=== PATIENT | male | born 1980 | race Caucasian/White ===

== ENCOUNTER 2024-06-06 14:45 | Emergency (ER) | payer BC, SELFPAY ==
--- NOTE | ~2024-06-06 | XR_ITS ---
EXAMINATION: XR chest 2V Exam Date/Time: 06/06/2024 15:00 CDT HISTORY: cough, sob/wheeze, fever x3 days Comparison: 04/23/2015. RESULT: Lines, tubes, and devices: None. Lungs and pleura: Clear. Cardiomediastinal silhouette: Stable. Other: No acute osseous or upper abdominal finding. IMPRESSION: No acute cardiopulmonary process. Reviewed, dictated and finalized at location K.
--- OUTSIDE RECORDS SUMMARY | 2024-06-06 14:48 | XMS_ITS | Clinical Summary ---
Author Organization [facility] Care Team Providers Care Tile Trimmer Name Role Phone Unavailable Primary Care Provider Unavailabl e Social History Tobacco Use Types Packs/Day Years Used Date Smoking Tobacco: Never Assessed Sex and Gender Information Value Date Recorded Sex Assigned at Not on file Legal Sex Male 11:50 PM CDT Gender Identity Not on file Sexual Orientation Not on file Plan of Treatment Health Maintenance Due Date Last Done Comments Hepatitis C Virus (HCV) Screening 1982 TdaP Immunization 1982 Hepatitis B Immunization (1 of 3 - 19+ 3-dose series) 2001 Influenza Immunization (#1) 2023 SARS-COV-2 Immunization ( season) 2023 Respiratory Syncytial Virus (RSV) Immunization (Adult) (1 - 1-dose 75+ series) 2057 Meningococcal Immunization (ACWY) Aged Out No longer eligible based on patient's age to complete this topic Pneumococcal Immunization Combined Aged Out No longer eligible based on patient's age to complete this topic Rotavirus Immunization Aged Out No lo nger eligible based on patient's age to complete this topic
--- OUTSIDE RECORDS SUMMARY | 2024-06-06 14:48 | XMS_ITS | Encounter Summary ---
Author Organization [facility] Address [address] [place] [address] Phone Care Team Providers Care Manager Technical Name Role Phone Justo Almaguer MD Primary Care Provider [phone] Encounter Details Date Type Department Care Team (Late st Contact Info) Description 05/17/2017 Orders Only [facility] ProviderPhu MD [address] [place] [id number] Social History Tobacco Use Types Packs/Day Years Used Date Smoking Tobacco: Heavy Smoker Smokeless Tobacco: Never Comments:Smoking History Pac ks/day: 1 Packs Alcohol Use Standard Drinks/Week Comments Yes 0 (1 standard drink = 0.6 oz pur e alcohol) Sex and Gender Information Value Date Recorded Sex Assigned at Not on file Legal Sex Male 10:55 AM MANAGER CLIENT SERVICE Gender Identity Male 05/15/2020 12:37 PM CDT Sexual Orientation Straight 05/15/2020 12 :37 PM CDT documented as of this encounter Plan of Treatment Not on file documented as of this encounter Procedures Procedure Name Priority Date/Time Associated Diagnosis Comments DISCHARGE LABORATORY CUMULATIVE REPORT 05/17/2017 12:00 AM CDT documented in this encounter Results * DISCHARGE LABORATORY CUMULATIVE REPORT (05/17/2017 12:00 AM CDT) Narrative 05/17/2017 12:00 AM CDT Ordered by an unspecified provider. Historical Provider LAB BLOOD ORDERABLES Shaniqua l Result documented in this encounter Visit Diagnoses Not on filedocumented in this encounter Care Teams Manager Technical Relationship Specialty Start Date End Date Justo Almaguer MD [address] [place] [address] PCP - General Family Medicine 01/24/17 documented as of this encounter
--- OUTSIDE RECORDS SUMMARY | 2024-06-06 14:48 | XMS_ITS | Clinical Summary ---
Author Organization [facility] [address] [place] [address] Address [address] [place] [address] Care Team Providers Care Conductor Freight Name Role Phone Justo Almaguer MD Primary Care Provider [phone] Allergies Active Allergy Reactions Criticality Noted Date Comments Penicillin G Penicillins Hives Reaction: Hives, Watermelon Anaphylaxis High 03/19/2017 Face and tongue swelled up. Medications ibuprofen (ADVIL,MOTRIN) 200 mg tab/cap Take 3 tablet/capsule (600 mg total) by mouth every 6 (six) hours as needed for pain Active albuterol HFA (Ventolin HFA) 90 mcg/actuation inhaler Inhale 2 puffs every 4 (four) hours as needed for wheezing or shortness of breath 8 g 5 Active multivit with minerals/lutein (MULTIVITAMIN 50 PLUS ORAL) Active fnajexna-royp-n hkrp-hyvx-hxign 100 mg-150 mg- 50 mg-150 mg capsule Active Active Problems Problem Noted Date Diagnosed Date Physical exam, annual 06/10/2023 Assessment & Plan (06/10/2023 4:11 PM CDT): Preventive exam; reviewed recommended preventive screenings and vaccinations. Encourage annual flu vaccine. Wear sunscreen/protective clothing when outdoors. Impaired fasting glucose 06/10/2023 Assessment & Plan (06/10/2023 4:12 PM CDT): A1c = 5.6% today in office. Encouraged patient to closely monitor diet and decrease carbs/simple sugars. Will continue to monitor. Patient reports significant family history of diabetes. Asymptomatic microscopic hematuria 01/24/2017 Gastroesophageal reflux disease with esophagitis 07/03/2013 Overview (05/22/2016): REFLUX ESOPHAGITIS Assessment & Plan (03/19/2017 9:01 AM STRING CUTTER): Controlled as long as he is using nexium but in occasions also has to use tums because reflux and sore throat Will proceed with egd (assess for esophagitis, mackey's, etc) Tobacco dependence syndrome 07/03/2013 Overview (05/23/2016): Tobacco dependence Assessment & Plan (06/10/2023 4:07 PM CDT): Smoking 1/2 ppd. Reviewed NRT option. Assessment & Plan (03/19/2017 9:02 AM STRING CUTTER): Recommend smoking cessation Asthma 06/04/2012 Overview (05/23/2016): Asthma Assessment & Plan (06/10/2023 4:11 PM CDT): Using albuterol 2-3 times per week. Denies recent cough or URI. Encouraged smoking cessation. Immunizations Immunization Administration Dates Next Due Influenza, Quadrivalent, Spl it, Preservative Free, Intramuscular 12/22/2017,01/16/2014 Influenza, Trivalent, IM (MDV) 11/29/2014,2013 Influenza, Trivalent, Preser vative Free, Intramuscular 12/09/2011 Influenza, Unspecified 06/10/2023(Deferr ed: Patient Refused),11/17/2022(Deferred: Patient Refused),11/17/2021(Deferred: Patient Refused),02/17/2021(Deferred: Patient Refused),05/15/2020(Deferred: Patient Refused),02/18/2020(Deferred: Patient Refused),02/17/2019(Deferred: Patient Refused),11/17/2017,04/25/2017(Deferre d: Patient Refused) TD Preservative Free 09/03/2006 Td, adsorbed 01/11/2008 Tdap 06/10/2023 Surgical History Surgery Date Site/Laterality Comments OTHER SURGICAL HISTORY right thumb laceration/tendon repair OTHER SURGICAL HISTORY blood in urine: uroscopy Medical History Medical History Date Comments Asthma Asthma Hx Other Medical 2012 blood in urine; Comments: JORY 08/08/2014 - GERD (gastroesophageal reflux disease) Family History Medical History Relation Name Comments Other Father unknown; Alzheimer's disease Mother COPD Mother COPD; Diabetes Mother Diabetes mellit us; Diabetes type II Mother Diabetes -T ype 2; Diabetes type II Sister Diabetes -T ype 2; Relation Name Status Comments Father Other Mother Sister Alive Social History Tobacco Use Types Packs/Day Years Used Date Smoking Tobacco: Heavy Smoker Smokeless Tobacco: Never Tobacco Cessation:Ready to Q uit: Not Asked; Counseling Given: Not Answered Comments:Smoking History Packs/day: 1 Packs Alcohol Use Standard Drinks/Week Comments Yes 0 (1 standard drink = 0.6 oz pur e alcohol) PHQ-2 Answer Date Recorded PHQ-2 Total Score (If total score is 3 or more points, staff should administer the PHQ-9) 0 06/10/2023 Sex and Gender Information Value Date Recorded Sex Assigned at Not on file Legal Sex Male 10:55 AM STRING CUTTER Gender Identity Male 05/15/2020 12:37 PM CDT Sexual Orientation Straight 05/15/2020 12 :37 PM CDT Obstetrics History Last Filed Vital Signs Vital Sign Reading Time Taken Comments Blood Pressure 128/86 06/10/2023 3:42 PM CDT Pulse 92 06/10/2023 3:42 PM CDT Temperature 37.4 C (99.3 F) 06/10/2023 3:42 PM CDT Respiratory Rate 16 06/10/2023 3:42 PM CDT Oxygen Saturation 95% 06/10/2023 3:42 PM CDT Inhaled Oxygen Concentration - - Weight 84.6 kg (186 lb 9.6 oz) 06/10/2023 3:42 P M CDT Height 180.3 cm (5' 10.98 ) 06/10/2023 3:42 PM C DT Body Mass Index 26.04 06/10/2023 3:42 PM CDT Plan of Treatment Health Maintenance Due Date Last Done Comments Hepatitis C Screening 1982 Varicella Vaccines (1 of 2 - 13+ 2-dose series) 05/02/1995 Hepatitis B Screening 2000 Pneumococcal vaccine <65 (1 of 2 - PCV) 2001 Depression Screening 06/09/2024 06/10/2023, 06/22/2021, 05/15/2020, Additional history exists Regular Well Visit/Exam 18-64 06/09/2024 06/10/2023, 06/22/2021, 05/15/2020, Additional history exists Influenza Vaccine (Season Ended) 2024 12/22/2017, 11/17/2017, 11/29/2014, Additional history exists DTaP/Tdap/Td Vaccine (2 - Td or Tdap) 06/09/2033 06/10/2023, 01/11/2008, 09/03/2006 HPV Vaccines Aged Out No longer eligi ble based on patient's age to complete this topic Insurance [facility] CHOICE PLUS [facility] [employer] ID [facility] Advance Directives For more information, please contact: [phone] * Full Code (Latest Code Status on File) Date Activated Date Inactivated Comments 05/12/2017 7:20 AM 05/12/2017 10:56 AM Care Teams Conductor Freight Relationship Specialty Start Date End Date Justo Almaguer MD [address] [place] [address] PCP - General Family Medicine 01/24/17
--- OUTSIDE RECORDS SUMMARY | 2024-06-06 14:48 | XMS_ITS | Referral Summary ---
Author Organization [facility] [address] [place] [address] Address [address] [place] [address] Care Team Providers Care Program Project Manager Name Role Phone Justo Almaguer MD Primary Care Provider [phone] Allergies Active Allergy Reactions Criticality Noted Date [...] with minerals/lutein (MULTIVITAMIN 50 PLUS ORAL) Active ldphspqa-hfsq-x xrdy-hkfp-quiui 100 mg-150 mg- 50 mg-150 mg capsule [...] ESOPHAGITIS Assessment & Plan (03/19/2017 9:01 AM IMMIGRATION LAWYER): Controlled as long as he is using nexium but in occasions also has to use tums because reflux and sore throat Will proceed with egd (assess for esophagitis, mackey's, etc) Tobacco dependence syndrome 07/03/2013 Overview (05/23/2016): Tobacco dependence Assessment & Plan (06/10/2023 4:07 PM CDT): Smoking 1/2 ppd. Reviewed NRT option. Assessment & Plan (03/19/2017 9:02 AM IMMIGRATION LAWYER): Recommend smoking cessation Asthma 06/04/2012 Overview (05/23/2016): [...] Free 09/03/2006 Td, adsorbed 01/11/2008 Tdap 06/10/2023 Social History Tobacco Use Types Packs/Day Years [...] on file Legal Sex Male 10:55 AM IMMIGRATION LAWYER Gender Identity Male 05/15/2020 12:37 PM CDT Sexual Orientation Straight 05/15/2020 12 :37 PM CDT Last Filed Vital Signs Vital Sign Reading [...] 06/10/2023 3:42 PM CDT Plan of Treatment Not on file Insurance [facility] CHOICE PLUS [facility] H[facility]/PPO Address: [address] [address] [place] [address] [facility] Address: [address] [address] [place] [address] [facility]/PPO Address: [address] [address] [place] [address] [facility] Advance Directives For more information, please contact: [phone] * Full Code (Latest Code Status on File) Date Activated Date Inactivated Comments 05/12/2017 7:20 AM 05/12/2017 10:56 AM Care Teams Program Project Manager Relationship Specialty Start Date End Date Justo Almaguer MD [address] [place] [address] PCP - General Family Medicine 01/24/17
[2024-06-06 14:54] VITALS: BP 133/86; PULSE 95; RESP 20; TEMP 38; O2SAT 97
--- NOTE | 2024-06-06 15:03 | ED_ITS ---
HPI - URI/Sore Throat General Chief Complaint: Upper Respiratory Infection Stated Complaint: cough, fever, shortness of breath Time Seen by Provider: 06/06/24 14:57 Source: patient and RN notes reviewed Mode of arrival: ambulatory Limitations: no limitations History of Present Illness HPI Narrative: Patient presents today complaining of a 2 day history of headache, cough, wheezing, fever up to 102.3. He has tried ibuprofen, NyQuil without relief as well as his albuterol inhaler with mild short-term relief. History of asthma. Related Data Allergies Allergy/AdvReac Type Severity Reaction Status Date / Time Penicillins Allergy Unknown Unknown Verified 06/06/24 14:58 fruit Allergy Unknown Unknown Uncoded 06/06/24 14:58 Review of Systems Review of Systems: CONSTITUTIONAL: Denies body aches, chills, or sweats.+ fever EYES: Denies visual changes, redness, or discharge. ENT: Denies rhinorrhea, congestion, sore throat, or otalgia. CARDIOVASCULAR: Denies chest pain, palpitations, or edema. RESPIRATORY:+ cough, shortness of breath, wheezing GASTROINTESTINAL: Denies abdominal pain, nausea, vomiting, or diarrhea. GENITOURINARY: Denies dysuria or hematuria. SKIN: Denies rash, itching, or wounds. MUSCULOSKELETAL: Denies back pain, joint pain, or myalgia. NEUROLOGIC: Denies numbness, tingling, or weakness.+ headache PSYCH: Denies depression or anxiety. [facility] Past Medical History Medical History (Updated 06/06/24 @ 15:19 by Joyce Moore, [facility], ) Asthma Comments At time of signature, I have reviewed and agree with nursing past medical, surgical, social and family history unless otherwise noted. Please see nursing chart for further information. There is no relevant family history pertinent to the presenting complaint Exam Narrative: GENERAL: Well-appearing, well-nourished, and in no acute distress. HEAD: Normocephalic, atraumatic. EYES: EOMI. No redness or drainage. Conjunctivae normal. ENT: Mucous membranes pink and moist. Nares clear. No rhinorrhea. TMs normal bilaterally. Throat normal. Uvula midline. NECK: Normal AROM. Supple. No lymphadenopathy. CHEST: No respiratory distress. Inspiratory and expiratory wheezes in the upper lobes, significantly diminished in the bilateral lower lobes, right greater than left. HEART: Regular rate and rhythm. No murmur appreciated. Normal peripheral pulses. EXTREMITIES: Normal range of motion. No edema. SKIN: Warm, dry, no rash. Capillary refill normal. Normal skin turgor. NEURO: No focal deficits. Alert and oriented x3. Gait steady. PSYCH: Normal affect. No signs of depression or anxiety. Course Course Level of Care: Express Care Visit Vital Signs Vital signs: Vital Signs Temperature 100.4 F H 06/06/24 14:54 Pulse Rate 95 06/06/24 14:54 Respiratory Rate 06/06/24 14:54 Blood Pressure 133/86 06/06/24 14:54 Pulse Oximetry 97 06/06/24 14:54 Oxygen Delivery Room Air 06/06/24 14:54 Temperature 100.4 F H 06/06/24 14:54 Pulse Rate 95 06/06/24 14:54 Respiratory Rate 06/06/24 14:54 Blood Pressure 133/86 06/06/24 14:54 Pulse Oximetry 97 06/06/24 14:54 Oxygen Delivery Room Air 06/06/24 14:54 Reviewed MDM - URI/Sore Throat MDM Narrative Medical decision making narrative: Patient declines testing for influenza or COVID-19. Chest x-ray negative. Symptoms likely viral in etiology. Prescription for prednisone and albuterol nebulizer treatments sent to pharmacy to treat his asthma exacerbation. Patient declines antitussive. Follow-up and ED precautions given. Differential Diagnosis Differential diagnosis: Likely upper respiratory infection, viral infection, influenza and other (Pneumonia, COVID) Imaging Data Radiologist's impression: ITS Impressions Chest X-Ray 06/06/24 15:11 IMPRESSION: No acute cardiopulmonary process. Critical Care Time Critical Care Time Critical Care Time: No Discharge Plan Discharge Clinical Impression: Acute lower respiratory infection Asthma exacerbation Qualifiers: Asthma severity: unspecified severity Asthma persistence: unspecified Qualified Code(s): J45.901 - Unspecified asthma with (acute) exacerbation Patient Disposition: Home Condition: Stable Instructions: Asthma (DC) Additional Instructions: Your chest x-ray is negative for pneumonia. Please take the prednisone and use albuterol as directed. As discussed, if symptoms worsen, please go to the ER immediately for further evaluation. Your blood pressure was elevated above 120/80 today at Urgent Care. This puts you above the threshold for follow up. Please schedule a followup visit with your personal physician as soon as possible, for further evaluation and treatment. Even blood pressure exceeding 120/80 may indicate pre-hypertension. Patient Language: Danish Prescriptions: New prednisone 50 mg tablet 50 mg PO DAILY 5 Days Qty: 5 0RF albuterol sulfate 2.5 mg /3 mL (0.083 %) solution for nebulization 2.5 mg inhalation Q4-6H PRN (Reason: shortness of breath or wheezing) Qty: 45 0RF Follow-up/Referrals: Harms,Justo Guerrero M.D. [Primary Care Provider] - Time of Disposition: 15:20
== END 2024-06-06 15:23 | disposition home or self-care (01) ==
PROVIDERS: Emergency Provider Nurse Practitioner; PCP Family Medicine
DX: J45.901 Unspecified asthma with (acute) exacerbation (principal); J22 Unspecified acute lower respiratory infection
CPT/HCPCS: 71046; 99213; G0463